=== PATIENT | male | born 1960 | race Caucasian/White ===

== ENCOUNTER → 2017-05-15 | Outpatient (CLI) | payer OTHER ==
[~2017-05-15] MED LIST: ASPI-496 PO; ATOR-2 PO; BUSP30TA PO; CLOP75TA52 PO; DOCU-131 PO; ENAL2.5T PO; EZET10TA18 PO; FURO-93 PO; HYDR-3245 PO; LISI-167 PO; METO25TA35 PO; OMEG-76 PO; kcl PO
[2017-05-15 13:11] LABS: BASOPHILS # (AUTO) 0.03 x10^3/uL (0-0.1); BASOPHILS % (AUTO) 0 % (0-1); EOSINOPHILS # (AUTO) 0.07 x10^3/uL (0-0.4); EOSINOPHILS % (AUTO) 1 % (1-7); LYMPHOCYTES % (AUTO) 26 % (22-44); MD NO; MEAN CORPUSCULAR HEMOGLOBIN 29.2 pg (27.5-34.5); MEAN CORPUSCULAR VOLUME 88.4 fL (81-97); MONOCYTES # (AUTO) 0.78 x10^3/uL (0.2-0.8); MONOCYTES % (AUTO) 9 % (2-9); NEUTROPHILS # (AUTO) 5.78 x10^3/uL (1.8-6.8); NEUTROPHILS % (AUTO) 64 % (42-75); PLATELET COUNT 319 x10^3/uL (130-400); RED BLOOD COUNT 5.22 x10^6/uL (4.38-5.82); RED CELL DISTRIBUTION WIDTH 14.1 % (9.4-14.8)
[2017-05-15 13:24] LABS: ALANINE AMINOTRANSFERASE 43 U/L (12-78); ANION GAP 9 mmol/L (5-15); CALCIUM 8.8 mg/dL (8.5-10.1); CHLORIDE 106 mmol/L (98-107); CREATININE 0.98 mg/dL (0.7-1.3)
[2017-05-15 13:26] LABS: ALKALINE PHOSPHATASE 65 U/L (45-117); BILIRUBIN,TOTAL 0.6 mg/dL (0.2-1.0); TOTAL PROTEIN 7.6 g/dL (6.4-8.2)
== END ==
LOC: STAR 12:06
PROVIDERS: ATTEND Surgery
DX: Z01.818 Encounter for other preprocedural examination (principal); I65.23 Occlusion and stenosis of bilateral carotid arteries
CPT/HCPCS: 36415; 80053; 85025; 93005

== ENCOUNTER 2017-05-20 12:12 | Inpatient (IN) | payer OTHER ==
[~2017-05-20] VITALS: Ht 170.2 cm; Wt 94.1 kg
[2017-05-20] MEDS ORDERED: FENTANYL PF 100 MCG/2ML ONE ×2 (14:04→17:48)
[2017-05-20] MEDS ORDERED: MIDAZOLAM 1 MG/ML, 2ML ONE (14:04)
[2017-05-20] MEDS ORDERED: LACTATED RINGERS 1,000 ML IV SCH ×3 (14:08→21:30)
[2017-05-20] MEDS ORDERED: BUPIVACAINE/PF 0.5% ONE (14:30)
[2017-05-20] MEDS ORDERED: BACITRACIN 50,000 UNIT ONE (14:31)
[2017-05-20] MEDS ORDERED: LIDOCAINE 1%, 20ML ONE (14:31)
[2017-05-20] MEDS ORDERED: PAPAVERINE 30 MG/ML, 2ML ONE (14:31)
[2017-05-20] MEDS ORDERED: EPINEPHRINE 1 MG/ML, 1ML ONE (14:31)
[2017-05-20] MEDS ORDERED: THROMBIN 20,000 UNIT VIAL TP ONE (14:31)
[2017-05-20] MEDS ORDERED: PROTAMINE SULFATE 10 MG/ML, 5ML ONE (14:31)
[2017-05-20] MEDS ORDERED: HEPARIN 1,000 UNITS/ML, 10ML ONE (14:31)
[2017-05-20] MEDS ORDERED: CEFAZOLIN 1,000 MG ONE ×2 (17:50)
[2017-05-20] MEDS ORDERED: ROCURONIUM 10 MG/ML,10ML ONE (17:50)
[2017-05-20] MEDS ORDERED: PROPOFOL 10 MG/ML, 20ML ONE (17:50)
[2017-05-20] MEDS ORDERED: PHENYLEPHRINE 10 MG/ML ONE (17:50)
[2017-05-20] MEDS ORDERED: DEXAMETHASONE 4 MG/ML, 1ML ONE (17:53)
[2017-05-20] MEDS ORDERED: GLYCOPYRROLATE 0.4 MG/2 ML, 2ML ONE (17:53)
[2017-05-20] MEDS ORDERED: ONDANSETRON 2MG/ML, 2ML ONE (17:53)
[2017-05-20] MEDS ORDERED: NEOSTIGMINE 1 MG/ML, 10ML ONE (17:53)
[2017-05-20] MEDS ORDERED: ACETAMINOPHEN 325 MG TABLET PO PRN ×2 (18:30→21:30)
[2017-05-20] MEDS ORDERED: hydrALAzine 20 MG/ML, 1ML IV PRN ×2 (18:30→21:30)
[2017-05-20] MEDS ORDERED: ONDANSETRON 2MG/ML, 2ML IVPush PRN (18:30)
[2017-05-20] MEDS ORDERED: ALBUTEROL SULFATE 2.5 MG/3 ML NPPB PRN (18:30)
[2017-05-20] MEDS ORDERED: LABETALOL 5MG/ML, 20ML IV PRN (18:30)
[2017-05-20] MEDS ORDERED: PROMETHAZINE 25 MG/ML, 1ML IV PRN (18:30)
[2017-05-20] MEDS ORDERED: EPHEDRINE 50 MG/ML, 1ML IVPush PRN (18:30)
[2017-05-20] MEDS ORDERED: FENTANYL PF 100 MCG/2ML IV PRN (18:30)
[2017-05-20] MEDS ORDERED: METOPROLOL 1 MG/ML, 5ML IV PRN (18:30)
[2017-05-20] MEDS ORDERED: HYDROmorphone 1 MG/ML, 1ML IV PRN (18:30)
[2017-05-20] MEDS ORDERED: MEPERIDINE/PF 25MG/0.5ML IVPush PRN (18:30)
[2017-05-20] MEDS ORDERED: OXYcodone 5 MG/5 ML ORAL.SOL UDC ONE ×2 (19:29→20:24)
[2017-05-20] MEDS: OXYcodone 5 MG/5 ML ORAL.SOL UDC PO PRN ×2 (19:31→20:28)
[2017-05-20] MEDS ORDERED: ONDANSETRON 2MG/ML, 2ML IV PRN (21:30)
[2017-05-20] MEDS ORDERED: NITROPRUSSIDE 50 MG in DEXTROSE 5% 248 ML IV SCH (21:30)
[2017-05-20] MEDS ORDERED: MORPHINE SULFATE 4 MG/ML, 1ML IV PRN (21:30)
[2017-05-20] MEDS ORDERED: LABETALOL 5MG/ML, 20ML IVPush PRN (21:30)
[2017-05-20] MEDS ORDERED: ATORVASTATIN 80 MG TABLET PO SCH (22:00)
[2017-05-20] MEDS ORDERED: EZETIMIBE 10 MG TABLET PO SCH (22:00)
[2017-05-20] MEDS ORDERED: EZETIMIBE 10 MG TABLET HOMEMEDPO SCH (22:00)
[2017-05-20] MEDS ORDERED: LISINOPRIL 10 MG TABLET PO SCH (22:00)
[2017-05-20] MEDS ORDERED: ATORVASTATIN 80 MG TABLET HOMEMEDPO SCH (22:01)
[2017-05-20] MEDS: ASPIRIN 81 MG TABLET EC PO SCH (22:16)
[2017-05-20] MEDS: CEFAZOLIN PMX 2GM/100ML 100 ML IVPB SCH (23:56)
[2017-05-21] MEDS: HYDROcodone/APAP 5/325 TABLET PO PRN ×2 (00:09→05:43)
[2017-05-21 03:30] VITALS: BP 131/72
[2017-05-21 05:33] VITALS: BP 119/64
[2017-05-21] MEDS: ASPIRIN 81 MG TABLET EC PO SCH (05:43)
[2017-05-21] MEDS ORDERED: METOPROLOL TARTRATE 25 MG TABLET HOMEMEDPO SCH (06:00)
[2017-05-21 07:23] VITALS: BP 116/59
[2017-05-21] MEDS: CEFAZOLIN PMX 2GM/100ML 100 ML IVPB SCH (08:40)
[2017-05-21] MEDS ORDERED: SODIUM CHLORIDE FLUSH 10ML SYR IVF SCH (09:00)
[2017-05-21] MEDS ORDERED: LISINOPRIL 10 MG TABLET PO SCH ×2 (09:00)
[2017-05-21 12:15] VITALS: BP 142/72
[2017-05-21 13:40] VITALS: BP 148/70
[2017-05-21] MEDS ORDERED: HYDR-3237 PO (13:55)
== END 2017-05-21 14:10 | disposition home or self-care (01) | DRG 39 ==
LOC: ORIP 13:41 → 4NOR 20:44 → DCLOUNGE 05-21 13:52
PROVIDERS: ADMIT Surgery; ATTEND Surgery
PROC: 03CL0ZZ Extirpation of Matter from Left Internal Carotid Artery, Open Approach (ICD-10-PCS; 2017-05-20)
PROC: 03UJ0JZ Supplement Left Common Carotid Artery with Synthetic Substitute, Open Approach (ICD-10-PCS; 2017-05-20)
PROC: 03CJ0ZZ Extirpation of Matter from Left Common Carotid Artery, Open Approach (ICD-10-PCS; principal; 2017-05-20 15:30)
DX: I65.22 Occlusion and stenosis of left carotid artery (principal); E78.5 Hyperlipidemia, unspecified; I10 Essential (primary) hypertension; I25.10 Atherosclerotic heart disease of native coronary artery without angina pectoris; Z95.1 Presence of aortocoronary bypass graft
CPT/HCPCS: 36415; 86850; 86900; C1729; J0171; J0690; J1100; J1644; J2250; J2405; J2704; J2710; J2720; J3010; J3490; C1768; J2370; J2440; J7120

== ENCOUNTER → 2017-09-17 | Outpatient (CLI) | payer OTHER ==
[~2017-09-17] MED LIST changes: +HYDR-3237 PO
== END | disposition home or self-care (01) ==
LOC: CVU 08:16
PROVIDERS: ATTEND Surgery
DX: I65.21 Occlusion and stenosis of right carotid artery (principal); I10 Essential (primary) hypertension; E78.5 Hyperlipidemia, unspecified; R91.8 Other nonspecific abnormal finding of lung field
CPT/HCPCS: 93880

== ENCOUNTER → 2018-04-14 | Outpatient (CLI) | payer OTHER | END | disposition home or self-care (01) | LOC: CVU 08:41 | PROVIDERS: ATTEND Surgery | DX: I65.21 Occlusion and stenosis of right carotid artery (principal); I10 Essential (primary) hypertension; E78.5 Hyperlipidemia, unspecified; I25.2 Old myocardial infarction | CPT/HCPCS: 93880 ==

== ENCOUNTER → 2019-10-02 | Outpatient (CLI) | payer BC ==
[~2019-10-02] MED LIST changes: -EZET10TA18 PO; +EZET10TA70 PO
== END | disposition home or self-care (01) ==
LOC: CVU 07:39
PROVIDERS: ATTEND Surgery
DX: I65.23 Occlusion and stenosis of bilateral carotid arteries (principal)
CPT/HCPCS: 93880

== ENCOUNTER → 2020-05-25 | Outpatient (CLI) | payer BC ==
[~2020-05-25] MED LIST changes: -ENAL2.5T PO; +ENAL2.5T8 PO; -HYDR-3245 PO; +HYDR1TAB53 PO
== END | disposition home or self-care (01) ==
LOC: CVU 07:53
PROVIDERS: ATTEND Surgery
DX: I65.23 Occlusion and stenosis of bilateral carotid arteries (principal); I10 Essential (primary) hypertension; E78.5 Hyperlipidemia, unspecified; I25.2 Old myocardial infarction; Z95.1 Presence of aortocoronary bypass graft
CPT/HCPCS: 93880